=== PATIENT | female | born 1990 | race Caucasian/White ===

== ENCOUNTER 2017-10-29 18:29 | Emergency (ER) | payer OTHER ==
[~2017-10-29] VITALS: Ht 162.6 cm; Wt 62.7 kg
[2017-10-29] MEDS ORDERED: EPIPEN ADU0.3 MG/0.3 IM (21:26)
[2017-10-29] MEDS ORDERED: PREDNISONE10 M1 PO (21:26)
[2017-10-29] MEDS ORDERED: BENADRYL50 MG PO (21:26)
[2017-10-29 21:41] VITALS: BP 116/70
== END 2017-10-29 21:42 | disposition home or self-care (01) ==
LOC: EME 18:29
DX: R22.0 Localized swelling, mass and lump, head (principal); T78.1XXA Other adverse food reactions, not elsewhere classified, initial encounter; J45.909 Unspecified asthma, uncomplicated
CPT/HCPCS: 99281; 99285; J1200; J2930; S0028